=== PATIENT | male | born 1945 | race African-American/Black ===

== ENCOUNTER 2019-11-15 11:26 | Observation (INO) ==
[2019-11-15] MEDS ORDERED: ONDANSETRON 4 MG/2 ML VIAL IV PRN (13:55)
[2019-11-15] MEDS ORDERED: MAGNESIUM SULF RIDER 2 GM in PREMIX 1 EACH IV PRN (13:55)
[2019-11-15] MEDS ORDERED: ACETAMINOPHEN 325 MG TABLET PO PRN (13:55)
[2019-11-15] MEDS ORDERED: hydrALAZINE 20 MG/1 ML VIAL IV PRN (13:55)
[2019-11-15] MEDS ORDERED: MAGNESIUM SULF RIDER 4 GM in PREMIX 1 EACH IV PRN (13:55)
[2019-11-15] MEDS ORDERED: GLUCAGON 1 MG VIAL IM PRN (14:01)
[2019-11-15] MEDS ORDERED: DEXTROSE 10% 250 ML BAG IV PRN (14:01)
[2019-11-15 14:34] LABS: ABG Base Excess 1.3 MMOL/L (-2.5-2.5); ABG HCO3 25.6 MMOL/L (20-26); ABG Oxygen Saturation 96.9 % (95-100); ABG PCO2 51.1 MM HG (35-48); ABG PH 7.347 (7.35-7.45); ABG PO2 91.2 MM HG (80-95); ABG TCO2 24.5 MMOL/L (23-27)
[2019-11-15 15:00] LABS: Basophils % 0.4 % (0.0-0.8); Eosinophils # 0.1 10*3/uL (0.0-0.87); Eosinophils % 0.9 % (0.00-10.9); Hematocrit 40.6 VOL% (42.0-52.0); Hemoglobin 13.2 GM/DL (14.0-18.0); Immature Granulocytes % 0.4 %; Immature Granulocytes Absolute 0.02 #; Lymphocytes # 0.9 10*3/uL (1.4-4.0); Lymphocytes % 16.3 % (21.2-54.2); Mean Corpuscular HGB Conc 32.5 GM/DL (32-36); Mean Corpuscular Volume 98.8 FL (87-102); Mean Platelet Volume 12.3 FL (9.6-12.0); Monocytes % 7.2 % (1.7-12.7); Neutrophils % 74.8 % (38.7-73.9); Platelet Count 105 T/CUMM (130-400); Red Blood Count 4.11 MC/CUMM (3.8-5.5); Red Cell Distribution Width 14.1 % (9.3-17.3); White Blood Count 5.3 T/CUMM (4-12)
[2019-11-15 15:32] LABS: Albumin 3.5 G/DL (3.4-5.0); Bilirubin,Total 0.5 MG/DL (0.2-1.0); Calcium 8.8 MG/DL (8.5-10.1); Total Protein 7.5 G/DL (6.4-8.3)
[2019-11-15 15:38] LABS: Risk Ratio 2.78; Thyroid Stimulating Hormone 0.768 uIU/ml (0.358-3.74); VLDL CHOLESTEROL 10.2 MG/DL
[2019-11-15] MEDS: carvediloL 25 MG TABLET PO SCH (17:31)
[2019-11-15] MEDS: FUROSEMIDE 40 MG/4 ML VIAL IV SCH (17:31)
[2019-11-15] MEDS: INSULIN REGULAR 100 UNIT/ML SUBCUT SCH ×2 (17:49→21:36)
[2019-11-15] MEDS ORDERED: LEVOFLOXACIN INJ 750 MG in PREMIX 1 EACH IV SCH (20:30)
[2019-11-15] MEDS: ALBUTEROL/IPRATROPIUM 3 ML NEB RESP TX SCH (20:57)
[2019-11-15] MEDS ORDERED: ENOXAPARIN 40 MG/0.4 ML SYRINGE SUBCUT SCH (21:00)
[2019-11-15] MEDS ORDERED: METOPROLOL TARTRATE 50 MG TABLET PO SCH (21:00)
[2019-11-15] MEDS ORDERED: QUEtiapine 25 MG TABLET PO SCH (21:00)
[2019-11-15] MEDS: hydrALAZINE 25 MG TABLET PO SCH (21:30)
[2019-11-15 21:32] LABS: Apearance,Urine CLEAR (Clear); Bilirubin,Urine Negative (Negative); Blood, Urine Large mg/dL (Negative); Glucose,Urine (UA) Negative (Negative); Ketones,Urine Negative (Negative); Mucus,Urine Occasional /LPF (Occasional); Nitrite,Urine Negative (Negative); Protein,Urine Negative; RBC,Urine 340 /HPF (0-4); Urine Color Colorless (Yellow); Urine Urobilinogen < 2.0 EU/DL (0.2-1.0); WBC,Urine 1 /HPF (0-6)
[2019-11-16] MEDS: ALBUTEROL/IPRATROPIUM 3 ML NEB RESP TX SCH ×3 (01:09→13:38)
[2019-11-16] MEDS: FUROSEMIDE 40 MG/4 ML VIAL IV SCH (08:10)
[2019-11-16] MEDS: hydrALAZINE 25 MG TABLET PO SCH (08:15)
[2019-11-16] MEDS: carvediloL 25 MG TABLET PO SCH ×2 (08:17→17:12)
[2019-11-16] MEDS: INSULIN REGULAR 100 UNIT/ML SUBCUT SCH ×3 (08:19→17:11)
[2019-11-16] MEDS ORDERED: DIGOXIN 0.25 MG TABLET PO SCH (09:00)
[2019-11-16] MEDS ORDERED: amLODIPine 10 MG TABLET PO SCH (09:00)
[2019-11-16] MEDS ORDERED: SACUBITRIL/VALSARTAN 49-51 MG TABLET PO SCH (09:00)
[2019-11-16] MEDS ORDERED: ASPIRIN CHEW 81 MG TABLET PO SCH (09:00)
[2019-11-16] MEDS ORDERED: ISOSORBIDE MONONITRATE 60 MG TABLET PO SCH (09:00)
[2019-11-16] MEDS ORDERED: ISOSORBIDE MONONITRATE 30 MG TABLET PO SCH (09:00)
[2019-11-16] MEDS ORDERED: SPIRONOLACTONE 25 MG TABLET PO SCH (09:00)
[2019-11-16] MEDS ORDERED: CLOPIDOGREL 75 MG TABLET PO SCH (09:00)
[2019-11-16] MEDS ORDERED: TAMSULOSIN 0.4 MG CAPSULE PO SCH (09:00)
[2019-11-16] MEDS ORDERED: sitaGLIPtin 25 MG TABLET PO SCH (09:15)
[2019-11-16] MEDS ORDERED: amLODIPine 2.5 MG TABLET PO SCH (09:30)
[2019-11-16] MEDS ORDERED: LEVOFLOXACIN 500 MG TABLET PO SCH (10:00)
[2019-11-16] MEDS ORDERED: FUROSEMIDE 40 MG TABLET PO SCH (16:00)
[2019-11-16 16:54] VITALS: BP 109/51
[2019-11-16] MEDS ORDERED: ATORVASTATIN 20 MG TABLET PO SCH (21:00)
== END 2019-11-16 18:28 | disposition home or self-care (01) ==
LOC: INTOOBSV 13:07 → SUATTDRO 13:07 → N.5E 13:07
PROVIDERS: ADMIT Internal Medicine; ATTEND Internal Medicine